=== PATIENT | male | born 1990 | race Caucasian/White ===

== ENCOUNTER 2017-03-22 07:13 | Observation (INO) | payer BC, OTHER ==
[2017-03-22 07:16] VITALS: BMI 26.4
--- NOTE | 2017-03-22 08:00 | ED PDOC ---
HPI: Psych/Substance Abuse Time Seen by Provider: 03/22/17 07:24 Chief Complaint (Nursing): Alcohol Ingestion Chief Complaint (Provider): intoxication ED Caveat: Acuity of Condition History Per: Patient History/Exam Limitations: intoxication Onset/Duration Of Symptoms: Unknown Current Symptoms Are (Timing): Still Present Suicide/Self Injury Attempted (Context): None Modifying Factor(s): Alcohol Severity: Mild Additional Complaint(s): Patient is a 26 year old male brought in by EMS due to intoxication. Further history is unavailable due to patients intoxicated state. Patients prior charts were reviewed and revealed a visit to [facility] in 2016 for alcoholic intoxication and MDMA abuse. PMD: none Past Medical History Reviewed: Unable To Obtain Vital Signs: Last Vital Signs Temp 97.7 F 03/22/17 07:16 Pulse 86 03/22/17 07:16 Resp 18 03/22/17 07:16 BP 138/90 03/22/17 07:16 Pulse Ox 99 03/22/17 07:16 - Medical History PMH: Denies: Depression - Family History Family History: States: Unknown Family Hx - Immunization History Hx Tetanus Toxoid Vaccination: (unobtainable) Hx Influenza Vaccination: (unobtainable) Hx Pneumococcal Vaccination: (unobtainable) - Home Medications Home Medications: Ambulatory Orders Medication Instructions Recorded Unobtainable 04/19/16 - Allergies Allergies/Adverse Reactions: Allergies Allergy/AdvReac Type Severity Reaction Status Date / Time No Known Allergies Allergy Verified 12/30/12 19:24 Review of Systems Review Of Systems: ROS cannot be obtained secondary to pt's inabilty to answer questions. Physical Exam - Reviewed Nursing Documentation Reviewed: Yes Vital Signs Reviewed: Yes - Physical Exam Appears: Positive for: Well (obtunded), Non-toxic, No Acute Distress Head Exam: Positive for: ATRAUMATIC (no gross trauma), NORMAL INSPECTION, NORMOCEPHALIC Skin: Positive for: Normal Color, Warm, DRY Eye Exam: Positive for: EOMI, Normal appearance, PERRL Neck: Positive for: Normal, Painless ROM Cardiovascular/Chest: Positive for: Regular Rate, Rhythm. Negative for: Gallop , Murmur Respiratory: Positive for: Normal Breath Sounds. Negative for: Accessory Muscle Use, Respiratory Distress Extremity: Positive for: Normal ROM - Laboratory Results Result Diagrams: 03/22/17 07:55 - ECG O2 Sat by Pulse Oximetry: 99 (RA) Pulse Ox Interpretation: Normal Medical Decision Making Medical Decision Making: Time: 7:25 Impression: intoxication v poss substance abuse Plan: Blood work Hemodynamic monitoring Alcohol serum BMP Scribe Attestation: Documented by Raz Mosley acting as a scribe for Adam Hull MD. Scribe Attestation: All medical record entries made by the Scribe were at my direction and personally dictated by me. I have reviewed the chart and agree that the record accurately reflects my personal performance of the history, physical exam, medical decision making, and the department course for this patient. I have also personally directed, reviewed, and agree with the discharge instructions and disposition. ED OBSERVATION Date of observation admission: 03/22/17 Time of observation admission: 11:15 - Observation admission statement Patient is being placed in observation because:: Intoxication - Goals of Observation Goals of observation are:: Clinical Sobriety - Progress Note Progress Note: 03/22/17 11:15 Improving but remains somnolent. Vitals stable. 03/22/17 1340: Improved, awake, alert, ambulating w steady gait. No signs neurologic emergency or emergent toxidrome to warrant further hospitalization. DC from ED. Followup PMD. Encourage etoh abstinence. Disposition - Clinical Impression Clinical Impression: Alcohol abuse with alcohol-induced disorder - Patient ED Disposition Is Patient to be Admitted: No Counseled Patient/Family Regarding: Studies Performed, Diagnosis, Need For Followup - Disposition Disposition: Routine/Home Disposition Time: 11:15 Condition: STABLE
[2017-03-22 08:22] LABS: ALCOHOL SERUM 189 mg/dl (0-10); BLOOD UREA NITROGEN 12 mg/dl (9-20); CALCIUM 8.4 mg/dL (8.4-10.2); CARBON DIOXIDE 25 mmol/L (22-30); CHLORIDE 108 mmol/L (98-107); GFR AFRICAN-AMERICAN > 60; GLUCOSE,RANDOM 106 mg/dL (75-110); POTASSIUM 4.1 MMOL/L (3.6-5.0); SODIUM 145 mmol/l (132-148)
[2017-03-22 13:41] VITALS: BP 121/83; PULSE 80; RESP 14; TEMP 97.9
[2017-03-22 13:58] VITALS: O2SAT 99
== END 2017-03-22 14:07 | disposition home or self-care (01) ==
LOC: H.ER 07:13 → H.EROBSV 11:15
PROVIDERS: ADMIT Emergency Medicine; ATTEND Emergency Medicine
DX: F10.129 Alcohol abuse with intoxication, unspecified (principal)
CPT/HCPCS: 36415; 80048; 82948; 99283; G0378; G0480